=== PATIENT | male | born 1980 | race Caucasian/White ===

== ENCOUNTER 2021-11-25 16:01 | Inpatient (IN) ==
[2021-11-25] MEDS ORDERED: KETOROLAC TROMETHAMINE 15 MG/ML VIAL IV STA ×2 (16:12→18:11)
[2021-11-25] MEDS ORDERED: ONDANSETRON INJ 2 MG/ML 2 ML VIAL IV STA (16:12)
[2021-11-25] MEDS ORDERED: SODIUM CHLORIDE 0.9% 1000ML 1,000 ML IV ONE (16:12)
--- NOTE | 2021-11-25 16:36 | Emergency Department Note ---
History of Present Illness General Chief Complaint: Kidney Stone Stated Complaint: KIDNEY STONE, CANNOT URINATE Time Seen by Provider: 11/25/21 16:11 History of Present Illness Provider Complaint: flank pain Onset (ago): 4 day(s) Pain Consistency: now resolved Location: R flank Severity: moderate Maximum Pain Intensity: 7 Current Pain Intensity: 7 Quality: + stabbing and + sharp Relieved By: + nothing Exacerbated By: + nothing Context: no foreign travel, no possible food poisoning, no sick contacts, no recent antibiotic use, no recent surgery/procedure or no recent injury Associated Symptoms: + back pain; no nausea, no vomiting, no diarrhea, no fever, no chills, no constipation, no dysuria, no hematemesis, no hematochezia, no m tang, no hematuria, no anorexia, no syncope, no headache, no neck pain, no chest pain, no weakness, no breathing difficulty and no numbness Patient is reporting he has having difficulty urinating now. Home Medications Medication Instructions Recorded Confirmed Type ondansetron 4 mg disintegrating 4 mg PO Q6H PRN #15 tab 11/21/21 11/25/21 Rx tablet oxycodone 5 mg tablet 5 mg PO Q6H PRN #12 tab 11/21/21 11/25/21 Rx tamsulosin 0.4 mg capsule (Flomax) 0.4 mg PO DAILY #10 cap 11/21/21 11/25/21 Rx Allergies Allergy/AdvReac Type Severity Reaction Status Date / Time cefaclor [From [facility]] Allergy Intermediate Rash Verified 11/25/21 16:49 beer Allergy Intermediate Difficulty Uncoded 11/25/21 16:49 Breathing guinea pig Allergy Intermediate Difficulty Uncoded 11/25/21 16:49 Breathing sugar glider Allergy Intermediate Difficulty Uncoded 11/25/21 16:49 Breathing Past Med/Surg History Medical History Calculus of distal right ureter No pertinent family history Surgical History History of colonoscopy with polypectomy Social History Smoking Status: Never smoker Feels Safe at Home: Yes Review of Systems A total of 10 systems reviewed and were otherwise negative Physical Exam Vital Signs: Vital Signs - 24 hr 11/25/21 16:05 11/25/21 16:40 11/25/21 17:47 Temperature 37.3 C Temperature Source Temporal Artery Sc an Pulse Rate 78 88 Pulse Rate [Left R adial] 80 Pulse Rhythm Regular Pulse Rhythm [Left Radial] Regular Pulse Strength [Le ft Radial] Normal Respiratory Rate 18 20 20 Respiratory Effort / Characteristics Non-Labored Sponta neous Non-Labored Respiratory Depth Normal Normal Respiratory Patter n Regular Regular Blood Pressure 138/86 Blood Pressure [Le ft Arm] 132/74 Blood Pressure Ashley n 103 Blood Pressure Ashley n [Left Arm] 93 Blood Pressure Pos ition Sitting Blood Pressure Pos ition [Left Arm] Lying Pulse Oximetry 98 98 98 Oxygen Delivery Me thod Room Air Room Air Room Air Sepsis Recent Feve r Within 48 Hours No Sepsis New/Unexpla ined Change in Men sarita Status N/A Sepsis Action Take n by Nursing No Action Required Physical Exam: Physical Exam GENERAL: He is oriented to person, place, and time. He appears well-developed and well-nourished. He does not appear distressed. HENT: Exam performed. - Head: Normocephalic and atraumatic. - Right Ear: External ear normal. No mastoid tenderness. - Left Ear: External ear normal. No mastoid tenderness. - Mouth/Throat: The oropharynx is clear and moist. No trismus in the jaw. No dental abscesses or uvula swelling. No oropharyngeal exudate or tonsillar abscesses. EYES: Conjunctivae and EOM are normal. Pupils are equal, round, and reactive to light. Right eye exhibits no discharge. Left eye exhibits no discharge. No scleral icterus. NECK: Normal range of motion. Neck supple. No JVD present. No spinous process tenderness present. No carotid bruit present. No rigidity. No tracheal deviation and normal range of motion present. No Brudzinski's sign and no Kernig's sign noted. CV: Normal rate, regular rhythm, normal heart sounds and intact distal pulses. There is no peripheral edema. Palpable radial pulses bue. PULM/CHEST: Effort normal and breath sounds normal. No respiratory distress. No stridor. He has no wheezes. He has no rales. - Chest Wall: He exhibits no tenderness. ABD: The abdomen is soft. Bowel sounds are normal. He has no distension. No mass is present. There is no tenderness. There is no rebound, no guarding, no Osuna's sign and no tenderness at McBurney's point. Rovsig negative. Right- sided CVA tenderness. MUSC/SKEL: Normal range of motion. There is no peripheral edema, tenderness or deformity. LYMPH: No cervical adenopathy. NEURO: He is alert and oriented to person, place, and time. He has normal strength. No cranial nerve deficit or sensory deficit. Coordination and gait normal. GCS eye subscore is 4. GCS verbal subscore is 5. GCS motor subscore is 6. Cerebellar tests wnl. SKIN: Skin is warm and dry. He is not diaphoretic. PSYCH: He has a normal mood and affect. Behavior is normal. Judgment and thought content normal. Course Course 161: The patient was evaluated in room C1. A complete history and physical exam was performed Cardiac monitoring: An order was placed for continuous cardiac monitoring. The monitor shows a rate of 80 with sinus rhythm EMR reviewed. Patient was seen in the emergency department on 520-2021, 4 days ago. At that time he had blood work done which was showed a leukocytosis of 14.5. CT of the abdomen showed a 6 mm obstructing calculus in the distal right ureter 2.5 cm above the vesicular ureteral junction with mild side of right hydroureteronephrosis. Patient was discharged with Flomax analgesia and Zofran. 1815: Vital signs stable. Patient reports his pain is coming back. He states he is now able to urinate after receiving fluids. Labs show hyponatremia of 124. Patient does not have any neurological dysfunction or seizures, no need for hypertonic saline. Ultrasound does reshow the hydroureter. Patient still having pain. Patient will be admitted to the [facility] hospitalist team for hyponatremia, renal colic, kidney stone with hydroureter. [facility] hospitalist team notified. Administered Medications Discontinued Medications Sodium Chloride (Nss 1000ml) 1,000 mls @ 999 mls/hr IV .Q1H1M ONE Stop: 11/25/21 17:12 Last Infusion: 11/25/21 17:36 Dose: 0 mls/hr Documented by: [id number] Admin: 11/25/21 16:33 Dose: 999 mls/hr Documented by: [id number] Ketorolac Tromethamine (Ketorolac Tromethamine 15 Mg/Ml Vial) 15 mg IV NOW STA Stop: 11/25/21 16:13 Last Admin: 11/25/21 16:33 Dose: 15 mg Documented by: [id number] Ondansetron HCl (Ondansetron Inj 2 Mg/Ml 2 Ml Vial) 4 mg IV NOW STA Stop: 11/25/21 16:13 Last Admin: 11/25/21 16:33 Dose: 4 mg Documented by: [id number] Medical Decision Making Laboratory Data Result diagrams: 11/25/21 16:25 11/25/21 16:25 Lab Results 11/25/21 11/25/21 Range/Units 16:25 16:25 WBC 13.33 H (4.8-10.8) K/uL RBC 3.80 L (4.7-6.1) M/uL Hgb 12.2 L (14.0-18.0) g/dL Hct 34.6 L (42-52) % MCV 91.1 (80-100) fL MCH 32.1 (25-34) pg MCHC 35.3 (32-36) g/dL RDW Std Deviation 41.4 (36.4-46.3) fL RDW Coeff of Crystal 12.3 (11.5-14.5) % Plt Count 233 (130-400) K/uL MPV 10.1 (7.4-10.4) fL Immature Gran % (Auto) 0.2 % Neut % (Auto) 82.1 % Lymph % (Auto) 9.6 % [place] % (Auto) 7.8 % Eos % (Auto) 0.1 % Baso % (Auto) 0.2 % Neut # (Auto) 10.96 H (1.4-6.5) K/uL Lymph # (Auto) 1.28 (1.2-3.4) K/uL [place] # (Auto) 1.04 H (0.11-0.59) K/uL Eos # (Auto) 0.01 (0-0.5) K/uL Baso # (Auto) 0.02 (0-0.2) K/uL Immature Gran # (Auto) 0.02 (0.00-0.02) K/uL Sodium 124 L (136-145) mmol/L Potassium 3.6 (3.5-5.1) mmol/L Chloride 93 L (98-107) mmol/L Carbon Dioxide 22 (21-32) mmol/L Anion Gap 9 (3-11) BUN 13 (6-23) mg/dl Creatinine 0.96 (0.6-1.4) mg/dl Est Cr Clr Drug Dosing 99.0 ml/min Est GFR ( Amer) 114.1 ml/min Est GFR (Non-Af Amer) 98.5 ml/min BUN/Creatinine Ratio 13.5 (10-20) Glucose 104 H (70-99(Fasting)) mg/dl Calcium 7.7 L (8.5-10.1) mg/dl Imaging Data Radiologist's Impression: Renal Ultrasound 11/25/21 16:12 RENAL ULTRASOUND CLINICAL HISTORY: Evaluate for hydronephrosis. COMPARISON STUDY: CT of the abdomen and pelvis November 21, 2021. TECHNIQUE: Sonography of the kidneys and the urinary bladder was performed. FINDINGS: Right kidney measures 11.5 cm maximal dimension and the left measures 11.2 cm. Mild to moderate right hydronephrosis is similar to CT of November 21, 2021. No ureteral calculi are identified although these are often occult by sonography. Ureteral jets were not visualized. There is no left hydronephrosis. No renal fluid collection to suggest abscess is present. IMPRESSION: No change in mild to moderate right hydronephrosis since CT of November 21, 2021. Right ureteral calculus shown on CT may be occult by sonography. ACT 112: Negative or not required by law. Electronically signed by: Gabe Berman M.D. 11/25/2021 5:49 PM [facility] Narrative 1611: The patient was evaluated in room C1. A complete history and physical exam was performed Cardiac monitoring: An order was placed for continuous cardiac monitoring. The monitor shows a rate of 80 with sinus rhythm EMR reviewed. Patient was seen in the emergency department on 2021, 4 days ago. At that time he had blood work done which was showed a leukocytosis of 14.5. CT of the abdomen showed a 6 mm obstructing calculus in the distal right ureter 2.5 cm above the vesicular ureteral junction with mild side of right hydroureteronephrosis. Patient was discharged with Flomax analgesia and Zofran. 1815: Vital signs stable. Patient reports his pain is coming back. He states he is now able to urinate after receiving fluids. Labs show hyponatremia of 124. Patient does not have any neurological dysfunction or seizures, no need for hypertonic saline. Ultrasound does reshow the hydroureter. Patient still having pain. Patient will be admitted to the [facility] hospitalist team for hyponatremia, renal colic, kidney stone with hydroureter. [facility] hospitalist team notified. Impression & Plan Acute hyponatremia, Renal colic, Hydronephrosis concurrent with and due to calculi of kidney and ureter Discharge Plan Visit Data Chief Complaint: Kidney Stone Stated Complaint: KIDNEY STONE, CANNOT URINATE ED Provider: Wei Hernandez Discharge Problem: Acute hyponatremia, Renal colic, Hydronephrosis concurrent with and due to calculi of kidney and ureter Patient Disposition: Admitted As Inpatient Forms Stand Alone Forms: [facility] [place] [employer] Prescriptions Prescriptions: No Action ondansetron 4 mg tablet,disintegrating 4 mg PO Q6H PRN (Reason: nausea and vomiting) Qty: 15 RF: 0 oxycodone 5 mg tablet 5 mg PO Q6H PRN (Reason: pain) Qty: 12 RF: 0 tamsulosin [Flomax] 0.4 mg capsule 0.4 mg PO DAILY Qty: 10 RF: 0 Referrals Referrals: PCP,NO [Primary Care Provider] -
[2021-11-25 16:39] LABS: Basophils # (auto) 0.02 K/uL (0-0.2); Basophils % (auto) 0.2 %; Eosinophils # (auto) 0.01 K/uL (0-0.5); Eosinophils % (auto) 0.1 %; Hematocrit (blood only) 34.6 % (42-52); Hemoglobin 12.2 g/dL (14.0-18.0); Immature Granulocytes # (auto) 0.02 K/uL (0.00-0.02); Immature Granulocytes % (auto) 0.2 %; Lymphocytes # (auto) 1.28 K/uL (1.2-3.4); Lymphocytes % (auto) 9.6 %; Mean Corpuscular Hemoglobin 32.1 pg (25-34); Mean Corpuscular Hgb Conc 35.3 g/dL (32-36); Mean Corpuscular Volume 91.1 fL (80-100); Mean Platelet Volume 10.1 fL (7.4-10.4); Monocytes # (auto) 1.04 K/uL (0.11-0.59); Monocytes % (auto) 7.8 %; Neutrophils # (auto) 10.96 K/uL (1.4-6.5); Neutrophils % (auto) 82.1 %; Platelet Count 233 K/uL (130-400); RDW Coefficient of Variation 12.3 % (11.5-14.5); RDW Standard Deviation 41.4 fL (36.4-46.3); White Blood Count 13.33 K/uL (4.8-10.8)
[2021-11-25 17:02] LABS: BUN Creatinine Ratio 13.5 (10-20); Calcium 7.7 mg/dl (8.5-10.1); Est GFR (African American) 114.1 ml/min; Est GFR (Non-African American) 98.5 ml/min; Potassium 3.6 mmol/L (3.5-5.1)
--- NOTE | 2021-11-25 17:50 | Ultrasound Report ---
RENAL ULTRASOUND CLINICAL HISTORY: Evaluate for hydronephrosis. COMPARISON STUDY: CT of the abdomen and pelvis November 21, 2021. TECHNIQUE: Sonography of the kidneys and the urinary bladder was performed. FINDINGS: Right kidney measures 11.5 cm maximal dimension and the left measures 11.2 cm. Mild to mode rate right hydronephrosis is similar to CT of November 21, 2021. No ureteral calculi are identified a lthough these are often occult by sonography. Ureteral jets were not visualized. There is no left hyd ronephrosis. No renal fluid collection to suggest abscess is present. IMPRESSION: No change in mild to moderate right hydronephrosis since CT of November 21, 2021. Right ureteral calc ulus shown on CT may be occult by sonography. ACT 112: Negative or not required by law. Electronically signed by: Gabe Berman M.D. 11/25/2021 5:49 PM
[2021-11-25] MEDS: SODIUM CHLORIDE 0.9% 1000ML 1,000 ML IV SCH (18:20)
[2021-11-25 18:39] LABS: Appearance Urine Clear (Clear); Bilirubin Urine Negative (Negative); Blood Urine Negative (Negative); Color Urine Yellow; Glucose Urine UA Negative (Negative); Ketones Urine Trace (Negative); Leukocyte Esterase Urine Negative (Negative); Nitrite Urine Negative (Negative); Protein Urine Negative (Negative); Specific Gravity Urine 1.006 (1.000-1.030); Urobilinogen Urine Negative (Negative)
[2021-11-25] MEDS: CIPROFLOXACIN / D5W 400 MG/200 ML BAG IV SCH (19:15)
--- NOTE | 2021-11-25 19:45 | History & Physical Report ---
Date of Service November 25, 2021 Assessment & Plan (1) Hydronephrosis concurrent with and due to calculi of kidney and ureter: (2) Acute hyponatremia: Plan: R ureter calculus with R Hydronephrosis: -due to obstructing stone will get urgent urology consult -UA did not show any leuko or nitrite; however pt is having leukocytosis with neutrophilic predominant therefore will start him on IV Cipro -will send UCx -IV morphine prn -c/w Flomax daily -due to possible urological procedure tomorrow will do npo after MN HypoNa+: -likely hypovolemic -Cr is wnl -pt is s/p 2L NS bolus - will repeat BMP in 4 hours - pt is able to eat -no neurological symptoms -BMP in the AM Diet: Regular (vegetarian) DVT PPx: due to probable urological procedure will do SCD FULL CODE History of Present Illness Chief Complaint: Difficulty with urination and R groin pain Primary Care Provider: NO PCP Pt is a 41 y/o M with hx of hemorrhoids, colonic polyp came into the ER with 4 day hx of R lower abd pain that radiates to the groin, intermittent nausea, vomiting (NBNB 3 days ago), and chills. Pt was dx with R ureter calculus 4 days ago in the ER and sent home on Flomax. Per pt symptoms improved but today, pt was unable to urinate and started having worsening R groin pain. Denied any dysuria but was having dark urine. In the ER: 2L of NS bolus Allergies Allergy/AdvReac Type Severity Reaction Status Date / Time cefaclor [From [facility]] Allergy Intermediate Rash Verified 11/25/21 16:49 beer Allergy Intermediate Difficulty Uncoded 11/25/21 16:49 Breathing guinea pig Allergy Intermediate Difficulty Uncoded 11/25/21 16:49 Breathing sugar glider Allergy Intermediate Difficulty Uncoded 11/25/21 16:49 Breathing Home Medications Medication Instructions Recorded Confirmed Type ondansetron 4 mg disintegrating 4 mg PO Q6H PRN #15 tab 11/21/21 11/25/21 Rx tablet oxycodone 5 mg tablet 5 mg PO Q6H PRN #12 tab 11/21/21 11/25/21 Rx tamsulosin 0.4 mg capsule (Flomax) 0.4 mg PO DAILY #10 cap 11/21/21 11/25/21 Rx Past Med/Surg History Medical History Calculus of distal right ureter No pertinent family history Surgical History History of colonoscopy with polypectomy Social History Smoking Status: Never smoker Feels Safe at Home: Yes Review of Systems Review of Systems: At least 10 Review of systems were reviewed and all negative except as indicated in HPI Physical Exam Physical Exam: General:. NAD, well developed, well nourished, average body habitus HEENT:. Normocephalic and atraumatic, Normal Conjunctiva, EOMI, Sclera is non- icteric Lungs:. No signs of respiratory distress, CTA, no wheezing or crackles Heart:. Normal S1, S2, no murmur Abdominal:.R CVA Tenderness, ND, Soft, NT, normal BS MSK:. No deformities of UE and LE, No leg edema Skin:. no rash or open wound Psych:. AAOx3, normal affect Results & Data Results & Data ([facility]) Vital Signs (Past 12 Hours) Vital Signs Temp Pulse Pulse Resp BP BP Pulse Ox 11/25/21 17:47 80 20 132/74 98 11/25/21 16:40 88 20 98 11/25/21 16:05 37.3 C 78 18 138/86 98 Laboratory Results Short CBC 11/25/21 Range/Units 16:25 WBC 13.33 H (4.8-10.8) K/uL Hgb 12.2 L (14.0-18.0) g/dL Hct 34.6 L (42-52) % Plt Count 233 (130-400) K/uL BMP 11/25/21 16:25 Sodium 124 L Potassium 3.6 Chloride 93 L Carbon Dioxide 22 BUN 13 Creatinine 0.96 Glucose 104 H Calcium 7.7 L Urine 11/25/21 Range/Units 18:23 Urine Color Yellow Urine Appearance Clear (Clear) Urine pH 6.0 (4.5-7.5) Ur Specific [place] 1.006 (1.000-1.030) Urine Protein Negative (Negative) Urine Glucose (UA) Negative (Negative) Diagnostic Findings Renal Ultrasound 11/25/21 16:12 RENAL ULTRASOUND CLINICAL HISTORY: Evaluate for hydronephrosis. COMPARISON STUDY: CT of the abdomen and pelvis November 21, 2021. TECHNIQUE: Sonography of the kidneys and the urinary bladder was performed. FINDINGS: Right kidney measures 11.5 cm maximal dimension and the left measures 11.2 cm. Mild to moderate right hydronephrosis is similar to CT of November 21, 2021. No ureteral calculi are identified although these are often occult by sonography. Ureteral jets were not visualized. There is no left hydronephrosis. No renal fluid collection to suggest abscess is present. IMPRESSION: No change in mild to moderate right hydronephrosis since CT of November 21, 2021. Right ureteral calculus shown on CT may be occult by sonography. ACT 112: Negative or not required by law. Electronically signed by: Gabe Berman M.D. 11/25/2021 5:49 PM Code Status & VTE Plan VTE Prophylaxis Plan VTE Prophylaxis will be ordered: Yes
[2021-11-25] MEDS ORDERED: MoRPHine SULFATE 2 MG/ML CARP IV PRN (22:20)
[2021-11-25] MEDS ORDERED: ONDANSETRON INJ 2 MG/ML 2 ML VIAL IV PRN (22:20)
[2021-11-25 23:13] LABS: BUN Creatinine Ratio 10.9 (10-20); Calcium 7.8 mg/dl (8.5-10.1); Creatinine Clr Calc Pharmacy 73.6 ml/min; Est GFR (African American) 79.8 ml/min; Est GFR (Non-African American) 68.9 ml/min; Potassium 3.7 mmol/L (3.5-5.1)
[2021-11-26] MEDS: SODIUM CHLORIDE 0.9% 1000ML 1,000 ML IV SCH ×3 (02:32→17:11)
[2021-11-26] MEDS: CIPROFLOXACIN / D5W 400 MG/200 ML BAG IV SCH ×2 (06:11→20:18)
[2021-11-26 08:13] LABS: Basophils # (auto) 0.01 K/uL (0-0.2); Basophils % (auto) 0.1 %; Eosinophils # (auto) 0.03 K/uL (0-0.5); Eosinophils % (auto) 0.3 %; Hematocrit (blood only) 35.8 % (42-52); Hemoglobin 12.3 g/dL (14.0-18.0); Immature Granulocytes # (auto) 0.01 K/uL (0.00-0.02); Immature Granulocytes % (auto) 0.1 %; Lymphocytes # (auto) 1.43 K/uL (1.2-3.4); Lymphocytes % (auto) 16.1 %; Mean Corpuscular Hemoglobin 31.5 pg (25-34); Mean Corpuscular Hgb Conc 34.4 g/dL (32-36); Mean Corpuscular Volume 91.6 fL (80-100); Mean Platelet Volume 10.5 fL (7.4-10.4); Monocytes # (auto) 1.13 K/uL (0.11-0.59); Monocytes % (auto) 12.7 %; Neutrophils # (auto) 6.28 K/uL (1.4-6.5); Neutrophils % (auto) 70.7 %; Platelet Count 216 K/uL (130-400); RDW Coefficient of Variation 12.8 % (11.5-14.5); RDW Standard Deviation 42.6 fL (36.4-46.3); Red Blood Count 3.91 M/uL (4.7-6.1); White Blood Count 8.89 K/uL (4.8-10.8)
--- NOTE | 2021-11-26 08:13 | Urology Consultation ---
Date of Consultation November 26, 2021 Assessment & Plan (1) Hydronephrosis concurrent with and due to calculi of kidney and ureter: (2) Renal colic: Patient with significant flank pain and groin. Coming in waves. Considerably bothersome. Patient Had initially presented earlier in the week with flank pain found to have distal right ureteral stone. Patient was sent home with pain control. Represented after a few days with continued issues. Patient not having any considerable fevers or chills. Does have ill feelings. No major family history of stone disease. Discussed extensively different options. Discussed options for conservative measure and maximum expulsion medical therapy and symptom controlled. Discussed ESWL. Discussed Ureteroscopy with extraction and/or laser lithotripsy. Risks and benefits were discussed. Stone free rates were also discussed as well as possibility of multiple procedures. Ureteral stents were discussed as well as post-operative issues and pain management. All questions were answered. We will plan to continue with maximum expulsion therapy with hydration. Patient will be okay to have diet. Advance as tolerated. We will plan to make n.p.o. at midnight with plans for possible intervention with possible stone treatment if patient is unable to pass stone. If patient suddenly worsens or develops significant fever may need more urgent intervention with stent. History of Present Illness Attending Physician: Ricky Caldwell MD History of Present Illness New consultation for patient with stone, discomfort, obstruction, and ill feelings. Patient developed sudden onset of pain into flank going down and radiating into groin and back in waves comes and goes. Can be severe at times. Discussed and reviewed patient's family history for any history of stone disease. Also, discussed patient's medical surgery history especially related to any history of urinary issues or stone disease. Patient was admitted and is undergoing observation. Allergies Allergy/AdvReac Type Severity Reaction Status Date / Time cefaclor [From [facility]] Allergy Intermediate Rash Verified 11/25/21 16:49 beer Allergy Intermediate Difficulty Uncoded 11/25/21 16:49 Breathing guinea pig Allergy Intermediate Difficulty Uncoded 11/25/21 16:49 Breathing sugar glider Allergy Intermediate Difficulty Uncoded 11/25/21 16:49 Breathing Home Medications Medication Instructions Recorded Confirmed Type ondansetron 4 mg disintegrating 4 mg PO Q6H PRN #15 tab 11/21/21 11/25/21 Rx tablet oxycodone 5 mg tablet 5 mg PO Q6H PRN #12 tab 11/21/21 11/25/21 Rx tamsulosin 0.4 mg capsule (Flomax) 0.4 mg PO DAILY #10 cap 11/21/21 11/25/21 Rx Patient History Medical History Calculus of distal right ureter No pertinent family history Surgical History History of colonoscopy with polypectomy Social History Smoking Status: Never smoker Hx Alcohol Use: Yes Alcohol type: hard liquor Hx Substance Use: No Preferred Language: [place] Communication Ability: Effective [place] Required: No Beliefs That Will Affect Care: None Current Living Situation: Spouse Other Information That Helps Us Care for You: No Feels Safe at Home: Yes Safety Concerns: Feels Safe At This Time Assistive Devices: None Review of Systems Review of Systems: All systems reviewed & are unremarkable except as noted in HPI & below Physical Exam Physical Exam: General: Alert and oriented x 3 in no acute distress. Patient is well nourished and well kept. HEENT: Normocephalic Atraumatic. Inspection normal. Cranial Nerves 2-12 Grossly intact. Nares are clear. Neck is supple. Normal inspection of face. Normal inspection of neck. Neurologic: No deficits on inspection. Baseline for motor function and sensory. Psychologic: Normal affect. Respiratory: Nonlabored. No use of accessory muscles. No tachypnea or dyspnea. Cardiovascular: No tachycardia Skin: [place] and Dry. No rashes or visible lesions. Extremities: Moving without issues. No motor deficits on inspection Lymphatics: No edema Abdomen: Soft Non-distended. No acites. No rebound or guarding. Results & Data ([facility]) Vital Signs (Past 12 Hours) Vital Signs Temp Pulse Pulse Resp BP BP Pulse Ox 11/26/21 07:09 64 11/26/21 07:00 37.2 C 66 18 114/68 97 11/26/21 03:06 36.8 C 63 18 112/65 96 11/25/21 22:44 59 L 11/25/21 22:15 36.8 C 68 18 133/75 95 11/25/21 21:56 80 18 140/76 98 02/26/22 21:00 20 98 PG Care Time/CCT Total # of Minutes Spent Total Time Spent with Patient: Total time spent is greater than 50% in coordination of care (as documented) at patient's floor/unit and/or counseling patient: Coding Level of Care Code 95827 Inpt Consult Level 5 Diagnoses Hydronephrosis concurrent with and due to calculi of kidney and ureter N13.2 Renal colic N23
[2021-11-26 08:38] LABS: Albumin Globulin Ratio 1.9 (0.9-2); Albumin Level 3.4 gm/dl (3.4-5.0); BUN Creatinine Ratio 9.6 (10-20); Bilirubin,Total 0.7 mg/dl (0.2-1.0); Calcium 7.8 mg/dl (8.5-10.1); Creatinine Clr Calc Pharmacy 60.9 ml/min; Est GFR (African American) 63.5 ml/min; Est GFR (Non-African American) 54.8 ml/min; Globulin 1.8 gm/dl (2.5-4.0); Potassium 4.1 mmol/L (3.5-5.1); Total Protein 5.2 gm/dl (6.0-8.3)
[2021-11-26] MEDS: TAMSULOSIN HCL 0.4 MG CAP PO SCH (15:44)
--- NOTE | 2021-11-26 19:48 | Hospitalist Progress Note ---
Date of Service November 26, 2021 Assessment & Plan (1) Hydronephrosis concurrent with and due to calculi of kidney and ureter: (2) Acute hyponatremia: Plan: Present on admission with worsening right flank and groin pain R ureter calculus with R Hydronephrosis: CT abd/pelvis showed 6 mm obstructing calculus in the distal right ureter located approximately 2.5 cm above the vesicoureteral junction. This causes mild to moderate right hydroureteronephrosis. Renal u/s showed change in mild to moderate right hydronephrosis since CT of November 21, 2021. Urology on board Plans for possible intervention with possible stone treatment if patient is unable to pass stone. Continue pain control Continue IVF Continue Flomax Currently on Cipro, if urine cx negative, will discontinue abx JOSE Mostly due to mild to moderate right hydroureteronephrosis from right ureter calculus Creatinine increased to 1.5 Continue IVF Will avoid nephrotoxic agent Continue monitor BMP Hyponatremia likely hypovolemic Na 137 today Continue monitor BMP Diet: Regular (vegetarian) DVT PPx: due to probable urological procedure will do SCD FULL CODE Admission and Anticipated Discharge Date Admission Date: November 25, 2021 Subjective Pt was seen and examined for right flank pain Sitting in bed with no acute distress Pt said that his flank pain improves He has been walking in the hallway with no distress Denies any chest pain, palpitation, dizziness and SOB Review of Systems Review of Systems: All systems reviewed & are unremarkable except as noted in Subjective Physical Exam Physical Exam: General- No acute distress Head- atraumatic Eyes- PERRL, EOMI, ENT- oropharynx clear Neck- supple, no JVD Lungs- clear to auscultation Heart- regular rhythm; no murmur Abdomen- normal bowel sounds, soft, nontender Extremities- no calf tenderness Neuro- alert, oriented x 3; PERRL, EOMI; no facial palsy; no dysarthria Skin- warm & dry Results & Data Results & Data ([facility]) Vital Signs (Past 12 Hours) Vital Signs Temp Pulse Pulse Resp BP BP Pulse Ox 11/26/21 19:18 36.9 C 61 18 124/74 97 11/26/21 16:00 69 11/26/21 14:00 36.8 C 62 18 121/65 100 11/26/21 11:00 36.9 C 64 18 148/81 H 98
[2021-11-27] MEDS: SODIUM CHLORIDE 0.9% 1000ML 1,000 ML IV SCH ×2 (01:08→09:10)
[2021-11-27] MEDS ORDERED: HYDROmorphone INJ 0.5 MG/0.5 ML SYR IV PRN (02:56)
[2021-11-27] MEDS ORDERED: oxyCODONE HCL IR 5 MG TAB (IMMEDIATE RELEASE) PO PRN (02:56)
[2021-11-27] MEDS ORDERED: ACETAMINOPHEN 325 MG TAB PO PRN (02:56)
[2021-11-27 07:49] LABS: BUN Creatinine Ratio 7.8 (10-20); Calcium 7.8 mg/dl (8.5-10.1); Creatinine Clr Calc Pharmacy 52.8 ml/min; Est GFR (African American) 53.4 ml/min; Est GFR (Non-African American) 46.1 ml/min
[2021-11-27] MEDS: CIPROFLOXACIN / D5W 400 MG/200 ML BAG IV SCH (08:34)
--- NOTE | 2021-11-27 09:14 | Urology Progress Note ---
Date of Service November 27, 2021 Assessment & Plan (1) Right distal ureteral calculus: Plan: 41 yo M admitted for renal colic secondary to right distal ureteral stone with hydronephrosis. - Pt seen for follow-up of right distal ureteral stone. - Afebrile, nontoxic, lab work reviewed - creatinine increased to 1.80 today, WBC within normal limits. - Denies stone passage overnight. Reports intermittent pain overnight requiring IV and PO medication, currently comfortable. - Discussed options for stone management including continued observation/trial of passage vs surgical intervention with ureteroscopy, laser lithotripsy, and stent placement inpatient vs outpatient surgical intervention. - Ureteral stents were discussed as well as post-operative issues and pain management. - Given hydronephrosis and JOSE in the context of an obstructing right distal ureteral stone, will proceed with cystoscopy, right ureteronephroscopy, possible laser lithotripsy/stone extraction, and right stent placement with Dr. Madrigal. - Patient agreeable to proceed with surgical intervention today. - Risks and benefits of procedure to be discussed with Dr. Madrigal. - OR notified. Covid testing negative. Will cover with scheduled IV Ciprofloxacin pre-operatively. - Patient in agreement with the plan, all questions answered. - Keep NPO for procedure. - Continue supportive care and management per primary service. - If doing well post-operatively, reasonable to be discharged to home afterward with Tamsulosin, prn Pyridium, and prn pain medication for stent management. ATTENDING NOTE: Independently examined, assessed, and consented. Agree with above. Risks and benefits discussed at length for procedure. These include bleeding, infection, injury to surrounding tissues or organs, and risks associated with anesthesia. Patient states understanding and agrees to proceed. Will sign consent and proceed. Plan for cystoscopy with right ureteroscopy and stone treatment. (2) Renal colic: Admission and Anticipated Discharge Date Admission Date: November 25, 2021 Subjective Patient seen and examined at bedside this AM. Awake, alert and sitting up in bed. Reports episode of pain overnight, relieved by admin of IV Morphine and PO oxycodone. Currently feeling comfortable, reports very mild pain in right flank/abdomen. Voiding spontaneously without difficulty, no dysuria or hematuria. No nausea or vomiting. No fever or chills. No chest pain or shortness of breath. He is NPO since midnight. Offers no additional complaints today. Review of Systems Constitutional: as per Subjective / HPI Eyes: no problem reported Ear, Nose, Mouth, Throat: no problem reported Respiratory: no dyspnea Cardiovascular: no chest pain Gastrointestinal: as per Subjective / HPI Genitourinary: + as per Subjective / HPI Musculoskeletal: no problem reported Integumentary: no problem reported Neurologic: no problem reported Psychiatric: no problem reported Physical Exam Constitutional: well developed and well nourished; no acute distress and not ill appearing Eyes: no scleral abnormality Neck: normal visual inspection Respiratory: normal respiratory effort and able to speak in complete sentences; no respiratory distress and no labored breathing Cardiovascular: Extremities: no pedal edema Gastrointestinal (Abdomen): Inspection/Auscultation: abdomen normal to inspection; abdomen not distended Percussion/Palpation: abdomen soft; abdomen nontender and no guarding Musculoskeletal: Head/Neck/Chest: normocephalic and head atraumatic Skin: no visible skin rashes Neurologic: moves all extremities and awake Psychiatric: Orientation: alert, oriented x 3 and cooperative Eye Contact: good eye contact Genitourinary: no CVA tenderness Results & Data ([facility]) Vital Signs (Past 12 Hours) Vital Signs Temp Pulse Pulse Pulse Resp BP BP 11/27/21 07:20 36.9 C 70 10 L 116/68 11/27/21 02:33 36.7 C 57 L 18 119/72 11/26/21 22:33 36.7 C 54 L 18 123/72 11/26/21 22:28 53 L Pulse Ox 11/27/21 07:20 96 11/27/21 02:33 98 11/26/21 22:33 97 11/26/21 22:28 PG Care Time/CCT Total # of Minutes Spent Total Time Spent with Patient: Total time spent is greater than 50% in coordination of care (as documented) at patient's floor/unit and/or counseling patient: Coding Level of Care Code 02291 Subseq Hosp Care Lvl 2 Diagnoses Right distal ureteral calculus N20.1 Renal colic N23
[2021-11-27] MEDS ORDERED: MIDAZOLAM HCL 1 MG/ML 2ML VIAL ONE (10:01)
[2021-11-27] MEDS ORDERED: DEXAMETHASONE SOD INJ 4 MG/ML VIAL ONE (10:01)
[2021-11-27] MEDS ORDERED: fentaNYL citrate 100 MCG/2 ML VIAL ONE (10:01)
[2021-11-27] MEDS ORDERED: ONDANSETRON INJ 2 MG/ML 2 ML VIAL ONE (10:01)
[2021-11-27] MEDS ORDERED: PROPOFOL IV EMULSION 10 MG/ML 20 ML VIAL IV ONE (10:01)
--- NOTE | 2021-11-27 10:31 | Anesthesiology Consultation ---
Date of Service November 27, 2021 Assessment & Plan Chart Review Chart Review: Acceptable Risk for Surgery Consults Requested none History Surgery Operation Date: 11/27/21 15:35 Proposed Procedures p Cystoscopy, Right Ureteroscopy, Possible Laser Lithotripsy Stone Extraction, Right Stent Placement - Remi Madrigal, DO Height/Weight Height: 5 ft 8 in Weight: 68.9 kg Allergies Allergy/AdvReac Type Severity Reaction Status Date / Time cefaclor [From Replaced By [facility]] Allergy Intermediate Rash Verified 11/27/21 10:18 beer Allergy Intermediate Difficulty Uncoded 11/27/21 10:18 Breathing guinea pig Allergy Intermediate Difficulty Uncoded 11/27/21 10:18 Breathing sugar glider Allergy Intermediate Difficulty Uncoded 11/27/21 10:18 Breathing Medications Home Medications Medication Instructions Recorded Confirmed Last Taken ondansetron 4 mg disintegrating 4 mg PO Q6H PRN #15 tab 11/21/21 11/25/21 Unknown tablet oxycodone 5 mg tablet 5 mg PO Q6H PRN #12 tab 11/21/21 11/25/21 Unknown tamsulosin 0.4 mg capsule (Flomax) 0.4 mg PO DAILY #10 cap 11/21/21 11/25/21 Unknown Active Medications Generic Name Dose Route Start Last Admin Trade Name Freq PRN Reason Stop Dose Admin Sodium Chloride 1,000 mls @ 125 mls/hr 11/25/21 18:15 11/27/21 09:08 Nss 1000ml IV 12/25/21 18:14 Infused .Q8H SULEMA Infusion Ciprofloxacin 400 mg in 200 mls @ 100 mls/hr 11/25/21 18:45 11/27/21 08:34 Cipro / D5w IV 12/05/21 18:44 100 mls/hr Q12H SULEMA Administration Protocol Oxycodone HCl 5 - 10 mg 11/27/21 02:56 11/27/21 03:13 Oxycodone Hcl Ir 5 Mg Tab (Immediate Release) PO 12/11/21 02:55 10 mg QID PRN Administration Pain Tamsulosin HCl 0.4 mg 11/26/21 16:30 11/26/21 15:44 Tamsulosin Hcl 0.4 Mg Cap PO 12/26/21 16:29 0.4 mg DAILY@1630 SULEMA Administration NPO Date Last Intake of Fluids: 11/27/21 Time Last Intake of Fluids: 09:30 Last Intake of Fluids Comment: sips of water-Dr Crowell here and aware Date Last Intake of Solids: 11/26/21 Time Last Intake of Solids: 19:00 Past Medical History Medical History Calculus of distal right ureter No pertinent family history Past Surgical History Surgical History (Updated 11/27/21 @ 10:18 by Abeba Alves RN) History of colonoscopy with polypectomy History of vasectomy History of wisdom tooth extraction Social History Smoking Status: Never smoker Hx Alcohol Use: Yes Alcohol type: hard liquor alcohol intake frequency: a few times a week Hx Substance Use: No Physical Exam Vital Signs Last Vital Signs Temp 37.1 C 11/27/21 10:19 Pulse 65 11/27/21 10:19 Resp 18 11/27/21 10:19 BP 131/77 11/27/21 10:19 Pulse Ox 100 11/27/21 10:19 Testing Laboratory Results 11/26/21 07:51 11/27/21 07:10 Urine Color Yellow 11/25/21 18:23 Urine Appearance Clear (Clear) 11/25/21 18:23 Urine pH 6.0 (4.5-7.5) 11/25/21 18:23 Ur Specific [place] 1.006 (1.000-1.030) 11/25/21 18:23 Urine Protein Negative (Negative) 11/25/21 18:23 Urine Glucose (UA) Negative (Negative) 11/25/21 18:23 Urine Ketones Trace (Negative) H 11/25/21 18:23 Urine Nitrite Negative (Negative) 11/25/21 18:23 Ur Leukocyte Esterase Negative (Negative) 11/25/21 18:23
[2021-11-27] MEDS ORDERED: PROMETHAZINE HCL 12.5 MG in SODIUM CHLORIDE 0.9% 50 ML IV PRN (10:32)
[2021-11-27] MEDS ORDERED: ONDANSETRON INJ 2 MG/ML 2 ML VIAL IV PRN (10:32)
[2021-11-27] MEDS ORDERED: HYDROmorphone INJ 2 MG/ML SYR/VIAL IV PRN (10:32)
[2021-11-27] MEDS ORDERED: fentaNYL citrate 100 MCG/2 ML VIAL IV PRN (10:32)
[2021-11-27] MEDS ORDERED: ePHEDrine sulfate 50 MG/ML AMP IV PRN (10:32)
[2021-11-27] MEDS ORDERED: ATROPINE SULFATE 0.1 MG/ML 10ML SYR IV PRN (10:32)
[2021-11-27] MEDS ORDERED: DIATRIZOATE MEGLUMINE 30% 100ML VIAL INSTIL ONE (11:09)
--- NOTE | 2021-11-27 11:19 | Operative Report ---
PG Post Operative Report Pre & Post Diagnosis Operation Date: 11/27/21 15:35 Pre-Op Diagnosis: STONE WITH HYDRONEPHROSIS Post-Op Diagnosis: STONE WITH HYDRONEPHROSIS I identified the patient and participated in the time-out.: Yes Procedure Operation Date: 11/27/21 15:35 Actual Procedures p Cystoscopy with Right Ureteroscopy, Right Ureteral Dilation, Retrograde pyelogram, Stone Extraction, Right Stent Placement(Right) - Remi Madrigal DO Surgeon Remi Madrigal, II, DO Invertebrate Paleontologist None Estimated Blood Loss 1 Findings Consistent with Post-Op Diagnosis Stricture dilated at distal ureter with stone just proximal. Stone removed. Specimens Stone Ureter Drains 6 Fr Multilength Anesthesia Type General Complications none Disposition Disposition: Recovery Room Indications Patient with bothersome stones. Risks and benefits discussed at length. Description of Procedure Patient was consented and brought back to the operating room. Patient was placed under anesthesia in the supine position and moved to the dorsal lithotomy position. Patient was prepped and draped in the regular sterile fashion. A time out was completed. A 30degree Cystoscope was placed into the bladder and the entire bladder was examined. The UO's were identified. The UO was cannulized with a catheter and a retrograde pyelogram was completed. A wire was then placed. The Rigid ureteroscope was taken into the ureter. The stone was identified just proximal to a significant stricture. This was dilated. The stone was then grasped and removed and sent for analysis. The entire area was once again examined. No residual large fragments or areas of concern were noted. The scope was slowly removed with the wire left in place. Contrast was placed through the scope for a pyelogram to assist in stent placement. The entire ureter was examined as the scope was slowly removed. No obstructions or other areas of concern were noted. With the wire in place, a 6 Fr Double J stent was placed. It was confirmed with fluoroscopy. With the stent in place, the bladder was emptied. The scope was removed. The patient was cleaned, aroused from anesthesia, and transferred to the pacu in stable condition having tolerated the procedure well with no complications. I was present and participated in all aspects of the procedure. The patient will be monitored in the PACU until transferred. Plan to maintain stent for approx 2 weeks and remove in office. I attest to the content of the Intraoperative Record and any orders documented therein. Any exceptions are noted below.
--- NOTE | 2021-11-27 11:52 | Anesthesiology Progress Note ---
Date of Service November 27, 2021 Anesthesia Post Procedure Vital Signs Vital Signs: Temp Pulse Pulse Pulse Pulse Resp BP 11/27/21 11:45 62 24 11/27/21 11:35 68 15 11/27/21 11:28 36.1 C L 69 18 11/27/21 10:19 37.1 C 65 18 131/77 11/27/21 07:20 36.9 C 70 10 L 116/68 11/27/21 02:33 36.7 C 57 L 18 11/26/21 22:33 36.7 C 54 L 18 123/72 11/26/21 22:28 53 L 11/26/21 19:18 36.9 C 61 18 124/74 11/26/21 16:00 69 11/26/21 14:00 36.8 C 62 18 121/65 BP Pulse Ox 11/27/21 11:45 114/73 100 11/27/21 11:35 123/72 100 11/27/21 11:28 122/72 100 11/27/21 10:19 100 11/27/21 07:20 96 11/27/21 02:33 119/72 98 11/26/21 22:33 97 11/26/21 22:28 11/26/21 19:18 97 11/26/21 16:00 11/26/21 14:00 100 Pain Intensity Right Flank: Pain Intensity: 3 Transfer of Care Handoff Completed per policy Notes Mental Status: alert / awake / arousable and participated in evaluation Patient Amnestic to Procedure: Yes Nausea / Vomiting: adequately controlled Pain: adequately controlled Airway Patency, RR, SpO2: stable & adequate BP & HR: stable & adequate Hydration State: stable & adequate Anesthetic Complications: no major complications apparent
--- NOTE | 2021-11-27 11:58 | Fluoroscopy Report ---
FL retrograde includes kub CLINICAL HISTORY: Right retrograde exam with stent placement. COMPARISON STUDY: CT of the abdomen and pelvis September 20, 2022. Renal ultrasound November 25, 2021 . FLUOROSCOPY TIME: 31 seconds. FLUOROSCOPIC IMAGES: 8 FINDINGS: Fluoroscopy was provided during right retrograde exam, stone extraction and placement of a right ureteral stent. Stent is appropriately positioned. IMPRESSION: Fluoroscopy provided during right retrograde exam with right ureteral stent insertion. ACT 112: Negative or not required by law. Electronically signed by: Gabe Berman M.D. 11/27/2021 11:57 AM
[2021-11-27] MEDS: TAMSULOSIN HCL 0.4 MG CAP PO SCH (16:10)
[2021-11-27 17:09] LABS: Creatinine Clr Calc Pharmacy 62.1 ml/min; Est GFR (Non-African American) 56.1 ml/min
--- NOTE | 2021-11-28 08:00 | Discharge Summary ---
Date of Service November 27, 2021 Admission HPI Per Admitting Provider Pt is a 41 y/o M with hx of hemorrhoids, colonic polyp came into the ER with 4 day hx of R lower abd pain that radiates to the groin, intermittent nausea, vomiting (NBNB 3 days ago), and chills. Pt was dx with R ureter calculus 4 days ago in the ER and sent home on Flomax. Per pt symptoms improved but today, pt was unable to urinate and started having worsening R groin pain. Denied any dysuria but was having dark urine. In the ER: 2L of NS bolus Admission Exam Per Admitting Provider General:.NAD, well developed, well nourished, average body habitus HEENT:.Normocephalic and atraumatic, Normal Conjunctiva, EOMI, Sclera is non- icteric Lungs:.No signs of respiratory distress, CTA, no wheezing or crackles Heart:.Normal S1, S2, no murmur Abdominal:.R CVA Tenderness,ND, Soft, NT, normal BS MSK:.No deformities of UE and LE, No leg edema Skin:.no rash or open wound Psych:.AAOx3, normal affect Principal Diagnosis (1) Hydronephrosis concurrent with and due to calculi of kidney and ureter: (2) Acute hyponatremia (3) Acute kidney injury Discharge Exam General- No acute distress Head- atraumatic Eyes- PERRL, EOMI, ENT- oropharynx clear Neck- supple, no JVD Lungs- clear to auscultation Heart- regular rhythm; no murmur Abdomen- normal bowel sounds, soft, nontender Extremities- no calf tenderness Neuro- alert, oriented x 3; PERRL, EOMI; no facial palsy; no dysarthria Skin- warm & dry Discharge Data Allergies Allergy/AdvReac Type Severity Reaction Status Date / Time cefaclor [From [facility]] Allergy Intermediate Rash Verified 11/27/21 10:18 beer Allergy Intermediate Difficulty Uncoded 11/27/21 10:18 Breathing guinea pig Allergy Intermediate Difficulty Uncoded 11/27/21 10:18 Breathing sugar glider Allergy Intermediate Difficulty Uncoded 11/27/21 10:18 Breathing Consultations 11/25/21 18:15 ED Decision to Admit Stat 11/26/21 06:06 Consult Urology Routine Procedures Performed Operation Date: 11/27/21 15:35 Actual Procedures p Right Ureteroscopy, Right Ureteral Dilation, Retrograde pyelogram, Stone Extraction, (Right) - DO salomon Hernandez Cystoscopy, (Not Applicable) - DO salomon Hernandez Right Stent Placement(Right) - Remi Madrigal DO Ordered Studies 11/25/21 16:12 US renal/blad retro comp Stat 11/27/21 10:00 FL retrograde includes kub Routine FL retrograde includes kub CLINICAL HISTORY: Right retrograde exam with stent placement. COMPARISON STUDY: CT of the abdomen and pelvis September 20, 2022. Renal ultrasound November 25, 2021. FLUOROSCOPY TIME: 31 seconds. FLUOROSCOPIC IMAGES: 8 FINDINGS: Fluoroscopy was provided during right retrograde exam, stone extraction and placement of a right ureteral stent. Stent is appropriately positioned. IMPRESSION: Fluoroscopy provided during right retrograde exam with right ureteral stent insertion. ACT 112: Negative or not required by law. Electronically signed by: Gabe Berman M.D. 11/27/2021 11:57 AM Dictated:11/27/21 1156 Transcribed: 11/27/21 1156 RENAL ULTRASOUND CLINICAL HISTORY: Evaluate for hydronephrosis. COMPARISON STUDY: CT of the abdomen and pelvis November 21, 2021. TECHNIQUE: Sonography of the kidneys and the urinary bladder was performed. FINDINGS: Right kidney measures 11.5 cm maximal dimension and the left measures 11.2 cm. Mild to moderate right hydronephrosis is similar to CT of November 21, 2021. No ureteral calculi are identified although these are often occult by sonography. Ureteral jets were not visualized. There is no left hydronephrosis. No renal fluid collection to suggest abscess is present. IMPRESSION: No change in mild to moderate right hydronephrosis since CT of November 21, 2021. Right ureteral calculus shown on CT may be occult by sonography. ACT 112: Negative or not required by law. Electronically signed by: Gabe Berman M.D. 11/25/2021 5:49 PM Dictated:11/25/211741 Transcribed: 11/25/211741 Hospital Course (1) Hydronephrosis concurrent with and due to calculi of kidney and ureter: (2) Acute hyponatremia: Present on admission with worsening right flank and groin pain R ureter calculus with R Hydronephrosis: CT abd/pelvis showed 6 mm obstructing calculus in the distal right ureter located approximately 2.5 cm above the vesicoureteral junction. This causes mild to moderate right hydroureteronephrosis. Renal u/s showed change in mild to moderate right hydronephrosis since CT of November 21, 2021. Urology on board s/p Cystoscopy with Right Ureteroscopy, Right Ureteral Dilation, Retrograde pyelogram, Stone Extraction, Right Stent Placement(Right) performed today by Remi Madrigal, DO Continue pain control Continue Flomax and pyridium Currently on Cipro, will discontinue abx since cx negative Advised pt to increase fluid hydration Ok from urology standpoint to discharge home Follow up with urology in 2 weeks for stent removal Pt said that he already had pain medication and flomax at home JOSE Mostly due to mild to moderate right hydroureteronephrosis from right ureter calculus Creatinine increased to 1.8 this morning Received IVF Pt would like to go home later repeat Creatinine later improved to 1.5 Continue to avoid nephrotoxic agent Check BMP in 1 week to monitor renal function Hyponatremia likely hypovolemic Na 137 Continue monitor BMP Diet: Regular (vegetarian) DVT PPx: due to probable urological procedure will do SCD FULL CODE Disposition Full code Total Time Total Time Spent Total Time Spent (In Minutes): 35 minutes Discharge Plan Discharge Items Patient Disposition: Home - Self-Care Reason For Visit: PYELO WITH HYDRONEPHROSIS Discharge Diagnosis: (1) Hydronephrosis concurrent with and due to calculi of kidney and ureter: (2) Acute hyponatremia (3) Acute kidney injury Activity: Resume your previous activity Non-emergency contact: Primary Care Provider and Urologist Call non-emergency contact if: you have any medication questions Follow-up/Referrals: PCP,NO [Primary Care Provider] - Diet: Regular Addtl Attending Provider Instructions: Follow up with your primary care provider in 1 week Follow up with urology Dr. Madrigal in 2 weeks for stent removal Check BMP in 1 week to monitor renal function Continue fluid hydration Seek medical attention if symptoms reoccur Pending Studies at Discharge: No Stand-Alone Forms: [employer], Smoking Cessation Medications and DC Order Prescriptions: New phenazopyridine [Pyridium] 200 mg tablet 200 mg PO Q8H PRN (Reason: pain) Qty: 21 RF: 0 Continued tamsulosin [Flomax] 0.4 mg capsule 0.4 mg PO DAILY Qty: 30 RF: 0 ondansetron 4 mg tablet,disintegrating 4 mg PO Q6H PRN (Reason: nausea and vomiting) Qty: 15 RF: 0 oxycodone 5 mg tablet 5 mg PO Q6H PRN (Reason: pain) Qty: 12 RF: 0 Discharge Orders: Discharge Order (Routine); Ordered 11/27/21 Ordered By: Ricky Guerin/Other Patient Handouts: Preventing Kidney Stones Admission Data Admit Date/Time: 11/25/21 18:28 Attending Provider: Ricky Caldwell Admit Provider: Luis Enrique Siddiqui Primary Care Provider: PCP,NO Other Providers: Luis Enrique Siddiqui ; Remi Madrigal Other Interventions: Discharge Summary Assessment (RN) Last Done: 11/27/21 17:22
[2021-11-30 11:55] LABS: Component 2 DNR; Source URETERAL STONE
== END 2021-11-27 18:06 | disposition home or self-care (01) | DRG 660 ==
LOC: ED 16:01 → SUATTDRO 18:28 → 2N 18:28